=== PATIENT | male | born 1990 | race Hispanic/Latino ===

== ENCOUNTER 2017-04-19 18:53 | Emergency (ER) | payer BC ==
[2017-04-19 18:57] VITALS: BP 111/73; PULSE 85; RESP 18; TEMP 98; O2SAT 99
--- NOTE | 2017-04-19 20:52 | ED PDOC ---
HPI: Psych/Substance Abuse Time Seen by Provider: 04/19/17 19:03 Chief Complaint (Nursing): Substance Abuse Chief Complaint (Provider): Denies complaint History Per: Patient History/Exam Limitations: no limitations Onset/Duration Of Symptoms: Days Current Symptoms Are (Timing): Still Present Additional Complaint(s): 26 yo male with no medical problems presents after drinking alcohol. PT brought by EMS for evaluation after being found sleeping on a bench. Pt alert and cooperative. Past Medical History Reviewed: Historical Data, Nursing Documentation, Vital Signs Vital Signs: Last Vital Signs Temp 98.0 F 04/19/17 18:54 Pulse 85 04/19/17 18:54 Resp 18 04/19/17 18:54 BP 111/73 04/19/17 18:54 Pulse Ox 99 04/19/17 18:54 - Medical History PMH: No Chronic Diseases - Surgical History Surgical History: No Surg Hx - Family History Family History: States: No Known Family Hx - Living Arrangements Living Arrangements: With Family - Social History Current smoker - smoking cessation education provided: No - Allergies Allergies/Adverse Reactions: Allergies Allergy/AdvReac Type Severity Reaction Status Date / Time No Known Allergies Allergy Verified 04/19/17 20:34 Review of Systems ROS Statement: Except As Marked, All Systems Reviewed And Found Negative Constitutional: Negative for: Fever, Chills Cardiovascular: Negative for: Chest Pain Respiratory: Negative for: Cough, Shortness of Breath Gastrointestinal: Negative for: Nausea, Vomiting Physical Exam - Reviewed Nursing Documentation Reviewed: Yes Vital Signs Reviewed: Yes - Physical Exam Appears: Positive for: Well, Non-toxic, No Acute Distress Head Exam: Positive for: ATRAUMATIC, NORMAL INSPECTION, NORMOCEPHALIC Skin: Positive for: Normal Color, Warm, DRY Eye Exam: Positive for: Normal appearance ENT: Positive for: Normal ENT Inspection Neck: Positive for: Normal, Painless ROM Cardiovascular/Chest: Positive for: Regular Rate, Rhythm Respiratory: Positive for: Normal Breath Sounds. Negative for: Accessory Muscle Use, Respiratory Distress Back: Positive for: Normal Inspection Extremity: Positive for: Normal ROM Neurologic/Psych: Positive for: Alert, Oriented - ECG O2 Sat by Pulse Oximetry: 99 Medical Decision Making Medical Decision Makin - Alert and oriented with clear speech and steady gait. Disposition - Clinical Impression Clinical Impression: Alcohol abuse - Patient ED Disposition Is Patient to be Admitted: No Counseled Patient/Family Regarding: Diagnosis - Disposition Disposition: Routine/Home Disposition Time: 20:52 Condition: STABLE Instructions: Effects of Alcohol on Your Health Forms: [employer] (Burkinan)
== END 2017-04-19 20:55 | disposition home or self-care (01) ==
LOC: H.ER 18:53
DX: F10.10 Alcohol abuse, uncomplicated (principal)